=== PATIENT | female | born 1950 | race Caucasian/White ===

== ENCOUNTER 2016-05-28 08:20 | Day surgery (SDC) | payer BC ==
--- NOTE | ~2016-05-28 | EGD ---
EGD REPORT [facility] [address] [place] [address] NAME: JERRY ASHLEY : [birth year] STATUS : REG [facility]#: [id number] AGE: 65 ADM/REG DATE : 05/28/16 MR#: [id number] REPORT SERV DATE: 05/28/16 DICTATED BY: SHELLEY SOLO DATE: 05/28/16 REPORT STATUS : Draft [facility]ANS[facility]IBED BY: [facility] DATE: 05/28/16 Endoscopy Center Patient Name: Jerry Ashley Date of : 1950 Attending MD: SHELLEY SOLO MD Procedure Date No Time: 05/28/2016 Procedure: Colonoscopy Indications: Screening in patient at increased risk: Family history of 1st-degree relative with colorectal cancer Referring MD: LACIE HERNANDEZ MD Medicines: as per anesthesia Complications: No immediate complications. Procedure: Pre-Anesthesia Assessment: - ASA Grade Assessment: II - A patient with mild systemic disease. After I obtained informed consent, the scope was passed under direct vision. Throughout the procedure, the patient's blood pressure, pulse, and oxygen saturations were monitored continuously. The [facility] [id number] was introduced through the anus and advanced to the cecum, identified by appendiceal orifice and ileocecal valve. The colonoscopy was performed without difficulty. The patient tolerated the procedure well. The quality of the bowel preparation was adequate to identify polyps. Findings: The perianal and digital rectal examinations were normal. A sessile polyp was found in the cecum. The polyp was 3 mm in size. The polyp was removed with a cold biopsy forceps. Resection and retrieval were complete. A few small and large-mouthed diverticula were found in the sigmoid colon and in the descending colon. Internal hemorrhoids were found during endoscopy and were mild. Impression: - One 3 mm polyp in the cecum. Resected and retrieved. - Diverticulosis in the sigmoid colon and in the descending colon. - Internal hemorrhoids. Recommendation: - Await pathology results. - Repeat colonoscopy for surveillance based on pathology results. Procedure Code(s): --- Professional --- 74045, Colonoscopy, flexible, proximal to splenic EGD REPORT [address] [place]. [address] NAME: JERRY ASHLEY : [birth year] STATUS : [place] [facility] [place] [facility] [place] PAT#: [id number] AGE: 65 ADM/REG DATE : 05/28/16 MR#: [id number] REPORT SERV DATE: 05/28/16 DICTATED BY: SHELLEY SOLO. DATE: 05/28/16 REPORT STATUS : Draft TRANSCRIBED BY: [employer] DATE: 05/28/16 flexure; with biopsy, single or multiple Diagnosis Code(s): --- Professional --- D12.0, Benign neoplasm of cecum K64.8, Other hemorrhoids K57.30, Diverticulosis of large intestine without perforation or abscess without bleeding Z12.11, Encounter for screening for malignant neoplasm of colon Z80.0, Family history of malignant neoplasm of digestive organs CPT copyright 2013 [employer]. All rights reserved. The codes documented in this report are preliminary and upon car runner review may be revised to meet current compliance requirements. SHELLEY SOLO MD 05/28/2016 10:48 AM This report has been signed electronically. Number of Addenda: 0 Note Initiated On: 05/28/2016 10:01 AM Scope Withdrawal Time 0 hours 7 minutes 24 seconds [address] [place] [address]
[~2016-05-28 08:20] MED LIST: ASAB PO; EZFE 200200 MG PO; MULTIVIT/MIN PO; OMEPRAZOLE PO; POTASSIUM OTC PO; PRAVASTATIN PO; PROAIR HFA INH; PULMICORT180 MCG INH; SINGULAIR1 PO
== END 2016-05-28 23:59 | disposition home or self-care (01) ==
LOC: DMU 08:20
PROVIDERS: Internal Medicine Gastroenterology
PROC: 0DBH8ZZ Excision of Cecum, Via Natural or Artificial Opening Endoscopic (ICD-10-PCS; principal; 2016-05-28 09:30)
DX: Z12.11 Encounter for screening for malignant neoplasm of colon (principal); D12.0 Benign neoplasm of cecum; K57.30 Diverticulosis of large intestine without perforation or abscess without bleeding; K64.8 Other hemorrhoids; K21.9 Gastro-esophageal reflux disease without esophagitis; I10 Essential (primary) hypertension; E78.00 Pure hypercholesterolemia, unspecified; J45.909 Unspecified asthma, uncomplicated; D64.9 Anemia, unspecified; Z80.0 Family history of malignant neoplasm of digestive organs; Z79.82 Long term (current) use of aspirin; Z79.899 Other long term (current) drug therapy; Z96.1 Presence of intraocular lens; Z98.41 Cataract extraction status, right eye; Z98.42 Cataract extraction status, left eye; Z90.710 Acquired absence of both cervix and uterus; Z90.89 Acquired absence of other organs; Z85.820 Personal history of malignant melanoma of skin; Z98.890 Other specified postprocedural states
CPT/HCPCS: 88305